=== PATIENT | male | born 1975 | race Caucasian/White ===

== ENCOUNTER → 2017-03-30 | Outpatient (CLI) | payer OTHER ==
--- NOTE | ~2017-03-30 | US5 ---
[facility] A Service of [facility] RADIOLOGY TEXT RESULTS PATIENT: LORRIE HASKINS LOCATION: [facility] : 71 UNIT #: [id number] AGE: [address]: ELIANA NORTH APRN SEX: M ORDER DR: [id number] [facility] [address] [place], [place] [address] [id number] O MR#: [id number] Acc #: [id number] NAME: LORRIE HASKINS : 1975 SEX: M STUDY DATE/TIME: 03/30/2017 9:14 UNIT: [facility] ROOM: STUDY DESCRIPTION: US Abdominal Complete Attending Physician: Eliana North Aprn Referring Physician: Eliana North Aprn Ordering Physician: Eliana North Aprn Primary Care Physician: Eliana North Aprn MEDICAL IMAGING REPORT This report is preliminary unless electronic signature is present EXAM Abdominal ultrasound INDICATIONS Umbilical hernia repair x3. Followup. Generalized abdominal pain and nausea for the past year 1.5 years. PROCEDURE Evans-scale and Doppler imaging of the abdomen. COMPARISON None. FINDINGS Pancreas obscured by bowel gas not well seen. Unremarkable gallbladder. Right kidney measures 12.2 cm. Increased liver echotexture compared with the right kidney. The liver measures 16.2 cm. No obvious liver mass is seen. Common duct measures 3 mm. Submitted images abdominal aorta and inferior vena cava unremarkable. Imaging in the left lower quadrant of the abdomen shows no sonographic abnormality. Left kidney measures 11.4 cm. Spleen measures 12.3 cm. IMPRESSION 1. Increased liver echotexture in keeping with steatosis. 2. Otherwise negative abdominal ultrasound. Targeted imaging in the left lower quadrant presumed in the area of clinical concern shows no sonographic abnormality. Dictated by... Med Canales M.D. THIS IS AN ELECTRONICALLY VERIFIED REPORT Med Canales M.D. at 04/02/2017 7:42 AM [facility] A Service of [facility] RADIOLOGY TEXT RESULTS PATIENT: LORRIE HASKINS LOCATION: [facility] #: [id number] : [birth year] UNIT #: [id number] AGE: [address]: ELIANA NORTH APRN SEX: M ORDER DR: Eloise TD: 03/30/2017 13:39 JOB #: [id number] MEDICAL IMAGING REPORT Page 1 of 1 COPY
== END | disposition home or self-care (01) ==
LOC: CGUS 08:31
DX: K42.9 Umbilical hernia without obstruction or gangrene (principal); R93.2 Abnormal findings on diagnostic imaging of liver and biliary tract
CPT/HCPCS: 76700

== ENCOUNTER → 2017-04-20 | Outpatient (CLI) | payer OTHER ==
--- NOTE | ~2017-04-20 | CT7 ---
[facility] A Service of [facility] RADIOLOGY TEXT RESULTS PATIENT: LORRIE HASKINS LOCATION: [facility] : 71 UNIT #: [id number] AGE: [address]: ELIANA DOMINIQUE APRN SEX: M ORDER DR: [id number] [facility] [address] [place], [place] [address] [id number] O MR#: [id number] Acc #: [id number] NAME: LORRIE HASKINS : 1975 SEX: M STUDY DATE/TIME: 04/20/2017 9:30 UNIT: [facility] ROOM: STUDY DESCRIPTION: CT Abdomen Wo Cont Attending Physician: Eliana Dominique Aprn Referring Physician: Eliana Dominique Aprn Ordering Physician: Eliana Dominique Aprn Primary Care Physician: Eliana Dominique Aprn MEDICAL IMAGING REPORT This report is preliminary unless electronic signature is present EXAM CT abdomen without contrast, 04/20/2017. HISTORY Physician's order states persistent umbilical pain. Normal abdominal ultrasound. Patient's history states nausea. Mid upper abdominal pain for 1 year. Diabetes. 3 prior hernia surgeries. COMPARISON Complete abdominal ultrasound 03/30/2017. PROCEDURE 5-mm noncontrast axial images from the lung bases through the iliac crest. Sagittal and coronal reformatted images were obtained. This CT exam was performed with one or more of the following radiation dose reduction techniques: automatic exposure control, adjustment of mA and/or kV according to patient size, and iterative reconstruction. FINDINGS ABDOMEN FINDINGS: The liver is enlarged, measuring about 26 cm craniocaudal, and the liver is markedly and diffusely steatotic. Gallbladder, spleen, pancreas, adrenals, and kidneys have a normal noncontrast appearance. No renal or ureteral stone is seen. No hydronephrosis. Lung bases are free of consolidation. Heart size appears within normal limits. There are signs of prior ventral abdominal hernia repair with what appears to be recurrent herniation of small bowel along the inferior margin of the mesh material slightly toward the left of midline (series 2 image 62, denoted by arrows). However, there is no convincing evidence of high-grade upstream small bowel obstruction. STS. [facility] A Service of 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 Multiple retroperitoneal surgical clips are in place. Bilateral L5 spondylolytic defects are present with grade 1 anterolisthesis L5 upon S1. No acute osseous abnormalities are identified. IMPRESSION 1. Recurrent ventral midline hernia just along the inferior margin of the mesh material. There is a small segment of herniated bowel which does not appear thickened or inflamed, and there is no evidence of upstream small bowel obstruction. 2. Hepatomegaly with marked diffuse hepatic steatosis. 3. Surgical changes within the retroperitoneum of the abdomen. 4. 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 Dictated by... Meg Flores M.D. THIS IS AN ELECTRONICALLY VERIFIED REPORT Meg Flores M.D. at 04/24/2017 8:40 AM SAURABH/patsy TD: 04/20/2017 16:43 JOB #: [id number] MEDICAL IMAGING REPORT Page 1 of 1 COPY
== END | disposition home or self-care (01) ==
LOC: CCAT 08:57
DX: R10.33 Periumbilical pain (principal); K43.2 Incisional hernia without obstruction or gangrene; M43.17 Spondylolisthesis, lumbosacral region; K76.0 Fatty (change of) liver, not elsewhere classified
CPT/HCPCS: 74150